=== PATIENT | female | born 1950 ===

== ENCOUNTER 2024-01-20 07:18 | Outpatient (CLI) | payer OTHER | END 2024-01-20 07:19 | disposition home or self-care (01) | LOC: NUCLEAR 07:18 | PROVIDERS: ATTEND Internal Medicine | DX: R07.9 Chest pain, unspecified (principal); I11.9 Hypertensive heart disease without heart failure | CPT/HCPCS: 78452; 93017; A9500 ==

== ENCOUNTER 2024-04-27 08:54 | Outpatient (CLI) | payer OTHER | END 2024-04-27 08:55 | disposition home or self-care (01) | LOC: NUCLEAR 08:54 | PROVIDERS: ATTEND Internal Medicine | DX: I87.2 Venous insufficiency (chronic) (peripheral) (principal); I11.9 Hypertensive heart disease without heart failure; E78.2 Mixed hyperlipidemia ==